=== PATIENT | female | born 1950 | race Caucasian/White ===

== ENCOUNTER 2024-02-27 08:07 | Outpatient (AMB) | payer MEDICARE, OTHER, SELFPAY ==
--- NOTE | 2024-02-27 08:09 | A.OFFVIS_ITS ---
Vital Signs 02/27/24 08:24 Height 5 ft 5 in Weight 155 lb BMI 25.8 Intake Visit Reasons: ENP-Neuromuscular dis/Periodic limb & facial muscl Intake Note: Patient presents for new patient evaluation Allergies No Known Allergies Allergy (Verified 02/27/24 08:24) Medication List - Last Reconciled 02/27/24 by Mandy Carroll MD carbamazepine ER (Tegretol XR) 100 mg PO BID dulaglutide (Trulicity) 0.75 mg subcut QWEEK methylprednisolone mg PO DIRECTED HPI Comments Details: 74y/o female comes for episodes of left facial spasm she is accompanied by her who helps with history . she started having left face spasm lasting 5-10 minutes. It started about 10 years ago but it increased in frequency in the past 2 years . The spasms sometimes can radiate to her throat , neck left Ue and lower extremity . when it extends to her throat she has difficulty speaking. she denies pain but has discomfort. 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 Osteoarthritis of right knee NAFL (nonalcoholic fatty liver) Hemorrhoids Proctalgia Alvarez's palsy Anal fissure Osteopenia Lumbar radiculopathy Osteoarthritis Trigger finger of left hand Compression fracture of T12 vertebra Chronic back pain Lung nodule, multiple Lower extremity edema Constipation, chronic Hiatal hernia Barretts esophagus Lumbar stenosis Thrombocytopenia HTN (hypertension) TIA (transient ischemic attack) Diabetes Depressive disorder Cirrhosis of liver Cataract Surgical History H/O section H/O: hysterectomy Hx of cholecystectomy Hx of appendectomy Social History Alcohol intake: never Patient Tobacco Use Status: Never used Tobacco Physical Exam Vital Signs: BMI result Body Mass Index 25.8 Const General: cooperative, healthy appearing and comfortable Nutritional Appearance: average body habitus Orientation/consciousness: patient oriented x3 Neuro Other: asymmetry of face with left face spasm. normal sensation General: patient oriented x3, tone normal, moves all extremities and no focal motor deficits Cranial nerves: Yes Facial sensation intact/muscles of mastication intact, Yes Intact sense of smell present, Yes Bilaterally intact EOM present, Yes Nystagmus not present, Yes Midline tongue present, Yes Symmetric palate elevation present and Yes Ability to bilaterally elevate shoulders present Cognition (Neuro): normal cognition Motor exam (neuro): 5/5 motor strength present throughout and Normal motor muscle tone present throughout Deep tendon reflexes (DTR's): Right triceps reflex intensity grade: 1+, Left triceps reflex intensity grade: 1+, Rt Biceps (C5, C6): 1+, Left biceps reflex intensity grade: 1+, Right brachioradialis reflex intensity grade: 1+, Left brachioradialis reflex intensity grade: 1+ and Right patellar reflex intensity grade: 1+ Coordination: [id number] test normal Assessment & Plan Assessment & Plan (1) 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 hemifacial spasm, ? focal seizures. 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
[2024-02-27 08:24] VITALS: BMI 25.8
== END 2024-02-27 09:02 | disposition home or self-care (01) ==
PROVIDERS: PCP Nurse Practitioner Primary Care; Visit Provider Psychiatry & Neurology Neurology
DX: G51.32 Clonic hemifacial spasm, left (principal)
CPT/HCPCS: 99204; G2211

== ENCOUNTER → 2024-02-27 08:07 | Outpatient (BNVA) | payer OTHER, MEDICARE, SELFPAY | PROVIDERS: PCP Nurse Practitioner Primary Care; Visit Provider Psychiatry & Neurology Neurology | DX: G51.32 Clonic hemifacial spasm, left (principal) | CPT/HCPCS: 99202 ==

== ENCOUNTER 2024-04-05 11:09 | Outpatient (AMB) | payer OTHER, MEDICARE, SELFPAY ==
[2024-04-05 11:14] VITALS: BP 110/62; BMI 26.3
--- NOTE | 2024-04-05 11:14 | MHC.OFFVIS ---
Vital Signs 04/05/24 11:14 Height 5 ft 5 in Weight 158 lb BMI 26.3 BP 110/62 Blood Pressure Location Rt brachial Position Sitting Intake Visit Reasons: Neuromuscular dis/Periodic limb & facial muscl Intake Note: Patient presents for Neuromuscular follow up Allergies No Known Allergies Allergy (Verified 04/05/24 11:23) HPI Comments Details: 74y/o female comes for episodes of left facial spasm she is accompanied by her who helps with history . she started having left face spasm lasting 5-10 minutes. It started about 10 years ago but it increased in frequency in the past 2 years . The spasms sometimes can radiate to her throat , neck, left UE and R. LE. when it extends to her throat she has difficulty speaking and panics. she denies loss of consciousness but she feels exhausted during these episodes. She has had 6 episodes since last visit in 03/19/2024. Angel-facial spasms of the face still occurring, vision changes with blurriness and eye pain, loses ability to speak and words are not decipherable. When she gets sick episodes re-occur, currently recovering from a UTI, D-mannose is helping. Drooling, incontinence, left sided drooping and pulling, dull aches and pain. Severe R. Leg pain, takes aspirin when desperate, despite having esophageal bleeding disorder. Lasts 10min to 2 hours and gets better, with cold packs on face and hot packs for legs. If she lays down flat she can not breath and she uses pillows, it randomly happens all hours of the day. 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 Osteoarthritis of right knee NAFL (nonalcoholic fatty liver) Hemorrhoids Proctalgia Alvarez's palsy Anal fissure Osteopenia Lumbar radiculopathy Osteoarthritis Trigger finger of left hand Compression fracture of T12 vertebra Chronic back pain Lung nodule, multiple Lower extremity edema Constipation, chronic Hiatal hernia Barretts esophagus Lumbar stenosis Thrombocytopenia HTN (hypertension) TIA (transient ischemic attack) Diabetes Depressive disorder Cirrhosis of liver Cataract Surgical History H/O section H/O: hysterectomy Hx of cholecystectomy Hx of appendectomy Social History Alcohol intake: never Patient Tobacco Use Status: Never used Tobacco Review of Systems Const All systems reviewed & are unremarkable except as noted in HPI and below Physical Exam Vital Signs: Last Vital Signs BP 110/62 04/05/24 11:14 BMI result Body Mass Index 26.3 Const General: cooperative, comfortable and no acute distress Nutritional Appearance: average body habitus Orientation/consciousness: patient oriented x3 HEENT Head: Yes normal to inspection Ears: hearing grossly normal bilaterally Face and sinus: Yes normal facial exam and Yes face symmetric Mouth: tongue normal Eyes Pupils: Equal, round and reactive pupils present Neck Neck: Yes full ROM Resp Effort & Inspection: normal respiratory effort and able to speak in complete sentences Neuro General: patient oriented x3 and Normal light touch and pain sensation Cranial nerves: Yes CN's II-XII intact bilaterally, Yes Facial sensation intact/muscles of mastication intact, Yes Equal, round and reactive pupils present, Yes Normal accommodation reflex present, Yes Normal facial strength present, Yes Midline tongue present, Yes Symmetric palate elevation present, Yes Ability to bilaterally rotate head present and Yes Ability to bilaterally elevate shoulders present Motor exam (neuro): Abnormal motor strength present (strength weaker on the lower extremity 4/5 and UE is 5/5) Deep tendon reflexes (DTR's): Right triceps reflex intensity grade: 2+, Left triceps reflex intensity grade: 2+, Rt Biceps (C5, C6): 2+, Left biceps reflex intensity grade: 2+, Right brachioradialis reflex intensity grade: 2+, Left brachioradialis reflex intensity grade: 2+, Right patellar reflex intensity grade: 2+ and Left patellar reflex intensity grade: 2+ Coordination: [id number] test normal Psych Appearance: grossly normal Affect: normal affect Attitude: cooperative Thought content: Normal thought content present Insight: Good insight present (Psych) Judgement: Good judgement present (Psych) Results Reviewed Results Reviewed: 03/19/2024 she had an MRI with non-specific Changes. Pending EEG Results. Message sent. 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 hemifacial spasm, ? focal seizures. Paroxysmal dyskinesia Code(s): G51.32 - Clonic hemifacial spasm, left Category: Medical Plan Will Trial her on Phenytoin 300mg PO at Bedtime. Will follow up with Patient in 2 months, Tegretol did not help control or minimize her symptoms. MRI showed no significant changes and she continues to have angel-facial spasms. Patient advised to take B2 400mg PO Daily, and magnesium 400mg PO daily. 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
== END 2024-04-05 12:38 | disposition home or self-care (01) ==
PROVIDERS: PCP Nurse Practitioner Primary Care; Visit Provider Physician Assistant Medical
DX: G51.32 Clonic hemifacial spasm, left (principal)
CPT/HCPCS: 99213

== ENCOUNTER → 2024-04-05 11:09 | Outpatient (BNVA) | payer OTHER, MEDICARE, SELFPAY | PROVIDERS: PCP Nurse Practitioner Primary Care; Visit Provider Physician Assistant Medical | DX: G51.32 Clonic hemifacial spasm, left (principal) | CPT/HCPCS: 99212 ==